=== PATIENT | female | born 1950 | race African-American/Black ===

== ENCOUNTER → 2018-06-28 | Outpatient (CLI) | payer MEDICARE, BC ==
[2018-06-28 16:04] LABS: BASOPHILS % (AUTO) 1.4 % (0.0-2.0); HEMATOCRIT 37.6 % (36-46); HEMOGLOBIN 12.2 g/dL (12.0-16.0); LYMPHOCYTES # (AUTO) 1.6 K/uL (1.0-4.8); LYMPHOCYTES % (AUTO) 17.5 % (22.0-44.0); MEAN CORPUSCULAR HEMOGLOBIN 27.4 pg (26.0-34.0); MEAN CORPUSCULAR HGB CONC 32.6 G/dL (31.0-37.0); MEAN CORPUSCULAR VOLUME 84 fL (80-100); MONOCYTES # (AUTO) 0.5 K/uL (0.1-1.0); MONOCYTES % (AUTO) 5.6 % (2.0-9.0); NEUTROPHILS # (AUTO) 6.3 K/uL (1.8-7.7); NEUTROPHILS % (AUTO) 68.5 % (40.0-70.0); PLATELET COUNT (AUTO) 197 K/uL (150-450); RED BLOOD CELL COUNT(AUTO) 4.47 MIL/uL (4.00-5.20); RED CELL DISTRIBUTION WIDTH 14.3 % (11.5-14.5)
== END | disposition home or self-care (01) ==
LOC: MSR 15:13
PROVIDERS: ATTEND Legal Medicine
DX: J18.9 Pneumonia, unspecified organism (principal); I50.9 Heart failure, unspecified

== ENCOUNTER 2018-07-03 06:36 | Emergency (ER) | payer MEDICARE, BC ==
[~2018-07-03] VITALS: Ht 162.6 cm; Wt 109.1 kg
[2018-07-03 06:49] LABS: GLUCOSE,POINT OF CARE 122 MG/DL (70-110)
[2018-07-03] MEDS ORDERED: TIOT4MIS3 IH (06:49)
[2018-07-03] MEDS ORDERED: ALBU8.5H8 IH (06:49)
[2018-07-03] MEDS ORDERED: GLIP10 PO (06:50)
[2018-07-03] MEDS ORDERED: LOSA25TA41 PO (06:50)
[2018-07-03] MEDS ORDERED: FURO40 PO (06:51)
[2018-07-03] MEDS ORDERED: DOXY50CA2 PO (06:51)
[2018-07-03] MEDS ORDERED: METF-960 PO (06:52)
[2018-07-03] MEDS ORDERED: INSLAN SQ (06:52)
[2018-07-03 08:10] LABS: BASOPHILS % (AUTO) 1.4 % (0.0-2.0); HEMATOCRIT 37.4 % (36-46); HEMOGLOBIN 12.3 g/dL (12.0-16.0); LYMPHOCYTES # (AUTO) 2.3 K/uL (1.0-4.8); LYMPHOCYTES % (AUTO) 28.1 % (22.0-44.0); MEAN CORPUSCULAR HEMOGLOBIN 28.2 pg (26.0-34.0); MEAN CORPUSCULAR HGB CONC 32.9 G/dL (31.0-37.0); MEAN CORPUSCULAR VOLUME 86 fL (80-100); MONOCYTES # (AUTO) 0.6 K/uL (0.1-1.0); MONOCYTES % (AUTO) 6.9 % (2.0-9.0); NEUTROPHILS # (AUTO) 4.5 K/uL (1.8-7.7); NEUTROPHILS % (AUTO) 55.6 % (40.0-70.0); PLATELET COUNT (AUTO) 208 K/uL (150-450); RED BLOOD CELL COUNT(AUTO) 4.37 MIL/uL (4.00-5.20); RED CELL DISTRIBUTION WIDTH 14.6 % (11.5-14.5)
[2018-07-03 08:23] LABS: CALCIUM, TOTAL 9.4 mg/dL (8.8-10.5); CREATININE 1.54 mg/dL (0.60-1.30); POTASSIUM 5.1 mmol/L (3.5-5.1)
[2018-07-03 08:28] LABS: ALBUMIN 3.5 g/dL (3.4-5.0); BILIRUBIN,TOTAL 0.4 mg/dL (0.1-1.0); TOTAL PROTEIN, SERUM 7.6 g/dL (6.4-8.2)
[2018-07-03] MEDS ORDERED: SODIUM CHLORIDE 0.9% 1,000 ML IV ONE (09:00)
[2018-07-03] MEDS ORDERED: IOVERSOL 350 MG/ML 150 ML VIAL ONE (09:08)
[2018-07-03] MEDS ORDERED: SODIUM CHLORIDE 0.9% 200 ML ONE (09:08)
[2018-07-03] MEDS ORDERED: SODIUM CHLORIDE 0.9% 100 ML ONE (09:08)
[2018-07-03] MEDS ORDERED: ALBUTEROL SULFATE 2.5 MG/0.5 ML NEB SOLUTION NEB ONE (09:15)
[2018-07-03] MEDS ORDERED: POTASSIUM CHL 20 MEQ/0.9% NS 1,000 ML IV ONE (10:15)
[2018-07-03 10:55] VITALS: BP 160/94
[2018-07-03] MEDS ORDERED: DOXY100C PO (10:59)
[2018-07-03] MEDS ORDERED: ALBUTEROL SULFATE HFA 90 MCG/PUFF 8 GM INHALER IH ONE (11:00)
== END 2018-07-03 11:22 | disposition home or self-care (01) ==
LOC: EMS 06:37
DX: J40 Bronchitis, not specified as acute or chronic (principal); N28.9 Disorder of kidney and ureter, unspecified; E11.9 Type 2 diabetes mellitus without complications; I10 Essential (primary) hypertension; Z88.0 Allergy status to penicillin; Z88.6 Allergy status to analgesic agent; Z79.4 Long term (current) use of insulin; Z79.84 Long term (current) use of oral hypoglycemic drugs; Z79.899 Other long term (current) drug therapy
CPT/HCPCS: 36415; 71046; 71275; 80053; 82962; 84484; 85025; 85379; 93005; 94640; 99284; J7030; J7050; Q9967; J3535